=== PATIENT | male | born 1960 | race Caucasian/White ===

== ENCOUNTER 2016-12-02 14:09 | Inpatient (IN) | payer SELFPAY ==
[~2016-12-02] VITALS: Ht 170.2 cm; Wt 70.0 kg
[2016-12-02 14:14] VITALS: BP 150/91; PULSE 110; RESP 24; TEMP 98; O2SAT 95
--- NOTE | 2016-12-02 14:43 | PD ---
HPI Chief Complaint: Skin Problem Time Seen by Provider: 14:43 Travel History International Travel<30 days: No Contact w/Intl Traveler<30days: No Traveled to known affect area: No History of Present Illness HPI 56-year-old male with no significant medical history however long history of IV drug abuse, presents to the emergency department for evaluation of multiple wounds over his lower extremities and upper extremities. Patient states that he just noticed them 4 days ago. He believes he may have used a dirty needle. Denies any fever or chills. Denies any chest or tightness. No difficulty breathing. States that his drug of choice is Dilaudid however he has been using methamphetamine lately. States that he is homeless. He is up-to-date on his tetanus vaccination. Has no other symptoms reported this time. [facility] Past Medical History Medical History: Denies Significant Hx Past Surgical History Surgical History: No Previous Surgery Social History Alcohol Use: Yes (not a lot) Tobacco Use: Yes (1-2 cigarettes a day) Substance Use: Yes (meth , heroin yesterday) Allergies-Medications (Allergen,Severity, Reaction): Coded Allergies: No Known Allergies (Unverified , 12/02/16) Reported Meds & Prescriptions Reported Meds & Active Scripts Active No Active Prescriptions or Reported Medications Review of Systems Except as stated in HPI: all other systems reviewed are Neg Physical Exam Narrative GENERAL: Well-nourished male patient, in no acute distress SKIN: Warm and dry. Multiple wounds, varying in size surrounded by erythema with mild blistering and drainage on the lower and upper extremities. HEAD: Atraumatic. Normocephalic. EYES: Pupils equal and round. No scleral icterus. No injection or drainage. ENT: No nasal bleeding or discharge. Mucous membranes pink and moist. NECK: Trachea midline. No JVD. CARDIOVASCULAR: Tachycardic rate and rhythm. No murmur appreciated. RESPIRATORY: No accessory muscle use. Clear to auscultation. Breath sounds equal bilaterally. GASTROINTESTINAL: Abdomen soft, non-tender, nondistended. Hepatic and splenic margins not palpable. MUSCULOSKELETAL: No obvious deformities. No clubbing. No cyanosis. NEUROLOGICAL: Awake and alert. No obvious cranial nerve deficits. Motor grossly within normal limits. Normal speech. Data Data Last Documented VS Vital Signs Date Time Temp Pulse Resp B/P Pulse Ox O2 Delivery O2 Flow Rate FiO2 12/02/16 17:38 93 14 140/80 93 Room Air 12/02/16 14:14 98.0 Orders Iv Access Insert/Monitor (12/02/16 14:41) Complete Blood Count With Diff (12/02/16 14:41) Basic Metabolic Panel (Bmp) (12/02/16 14:41) Blood Culture (12/02/16 14:41) Sodium Chlor 0.9% 1000 Ml Inj (Ns 1000 M (12/02/16 14:45) Vancomycin Inj (Vancomycin Inj) (12/02/16 14:45) Ketorolac Inj (Toradol Inj) (12/02/16 14:45) Electrocardiogram (12/02/16 ) Lactic Acid Sepsis Protocol (12/02/16 15:06) Westergren Sedimentation Rate (12/02/16 15:06) Chest, Single Ap (12/02/16 ) Sodium Chlor 0.9% 1000 Ml Inj (Ns 1000 M (12/02/16 15:15) Sodium Chlor 0.9% 1000 Ml Inj (Ns 1000 M (12/02/16 15:15) Piperacil-Tazo 4.5 Gm Premix (Zosyn 4.5 (12/02/16 15:15) Admit Order (Ed Use Only) (12/02/16 18:10) Labs Laboratory Tests Test 12/02/16 12/02/16 14:56 15:56 White Blood Count 11.7 TH/MM3 Red Blood Count 4.47 MIL/MM3 Hemoglobin 13.8 GM/DL Hematocrit 40.4 % Mean Corpuscular Volume 90.4 FL Mean Corpuscular Hemoglobin 31.0 PG Mean Corpuscular Hemoglobin 34.2 % Concent Red Cell Distribution Width 12.5 % Platelet Count 248 TH/MM3 Mean Platelet Volume 7.3 FL Neutrophils (%) (Auto) 77.4 % Lymphocytes (%) (Auto) 11.6 % Monocytes (%) (Auto) 8.6 % Eosinophils (%) (Auto) 2.1 % Basophils (%) (Auto) 0.3 % Neutrophils # (Auto) 9.1 TH/MM3 Lymphocytes # (Auto) 1.4 TH/MM3 Monocytes # (Auto) 1.0 TH/MM3 Eosinophils # (Auto) 0.2 TH/MM3 Basophils # (Auto) 0.0 TH/MM3 CBC Comment DIFF FINAL Differential Comment Sodium Level 139 MEQ/L Potassium Level 3.8 MEQ/L Chloride Level 105 MEQ/L Carbon Dioxide Level 27.3 MEQ/L Anion Gap 7 MEQ/L Blood Urea Nitrogen 6 MG/DL Creatinine 0.78 MG/DL Estimat Glomerular Filtration 104 ML/MIN Rate Random Glucose 94 MG/DL Calcium Level 8.8 MG/DL Erythrocyte Sedimentation Rate 30 mm/hr Lactic Acid Level 2.2 mmol/L MDM Medical Decision Making Medical Screen Exam Complete: Yes Emergency Medical Condition: Yes Medical Record Reviewed: Yes Differential Diagnosis cutaneous skin infection vs sepsis vs endocarditis/septic emboli versus electrolyte abnormality Narrative Course 56-year-old male presents to emergency department for evaluation of multiple wounds on his lower and upper extremities. Patient has history of IV drug use. Multiple wounds are noted on the lower and upper extremities. No distinct pattern. CBC is with mild leukocytosis of 11.7 and a left shift with neutrophil count of 9.1. Sedimentation rate is elevated at 30. BMP is without acute concern. Lactic acid is 2.2. Chest x-ray is without acute cardiopulmonary abnormality. I discussed patient with my attending physician Dr. Glass. Patient is given vancomycin and Zosyn after blood cultures are drawn. She recommends admission for further evaluation and treatment. I discussed the patient Dr. Mauricio. [facility]. Sepsis Criteria SIRS Criteria (2 or more): Heart rate over 90, RR > 20 or PaCO2 < 32 Sepsis Criteria (SIRS+source): Infect source susp/known Severe Sepsis (+one): Lactate >2 Diagnosis Primary Impression: Multiple wounds of skin Additional Impressions: IVDU (intravenous drug user) Suspected endocarditis Admitting Information Admitting Physician Requests: Admit Scripts No Active Prescriptions or Reported Meds Condition: Stable Venessa WhelanP Dec 02, 2016 14:43
[2016-12-02] MEDS ORDERED: VANCOMYCIN INJ 1,000 MG in SODIUM CHLOR 0.9% 250 ML INJ 250 ML IV ONE (14:45)
[2016-12-02] MEDS ORDERED: KETOROLAC TROMETHAMINE 30 MG/ML (IVP) VIAL IV PUSH ONE (14:45)
[2016-12-02] MEDS ORDERED: SODIUM CHLOR 0.9% 1000 ML INJ 1,000 ML IV ONE ×3 (14:45→15:15)
[2016-12-02] MEDS ORDERED: PIPERACIL-TAZO 4.5 GM PREMIX 100 ML IV ONE (15:15)
[2016-12-02 15:46] LABS: AUTOMATED NEUTROPHIL # 9.1 TH/MM3 (1.8-7.7); BASOPHIL % 0.3 % (0.0-2.0); EOSINOPHIL # 0.2 TH/MM3 (0-0.4); EOSINOPHIL % 2.1 % (0.0-4.0); HEMATOCRIT 40.4 % (39.0-51.0); HEMO FLAGS DIFF FINAL; LYMPH % 11.6 % (9.0-44.0); LYMPHOCYTE # 1.4 TH/MM3 (1.0-4.8); MEAN CELL VOLUME 90.4 FL (80.0-100.0); MEAN CORPUSCULAR HGB CONC 34.2 % (32.0-36.0); MONO % 8.6 % (0.0-8.0); NEUT % 77.4 % (16.0-70.0); PLATELET COUNT 248 TH/MM3 (150-450); RED BLOOD COUNT 4.47 MIL/MM3 (4.50-5.90); RED CELL DISTRIBUTION WIDTH 12.5 % (11.6-17.2); WHITE BLOOD COUNT 11.7 TH/MM3 (4.0-11.0)
[2016-12-02 15:58] VITALS: BP 155/87; PULSE 88; RESP 16; O2SAT 100
[2016-12-02 16:12] LABS: BICARBONATE 27.3 MEQ/L (21.0-32.0)
[2016-12-02 16:14] LABS: POTASSIUM 3.8 MEQ/L (3.5-5.1)
--- NOTE | 2016-12-02 16:36 | RADRPT ---
EXAM DATE/TIME: 12/02/2016 16:04 [place] COMPARISON: No previous studies available for comparison. INDICATIONS : Fever MEDICAL HISTORY : None. SURGICAL HISTORY : None. ENCOUNTER: Initial ACUITY: 1 day PAIN SCORE: 4/10 LOCATION: Bilateral chest FINDINGS: A single view of the chest demonstrates the lungs to be symmetrically aerated without evidence of mas s, infiltrate or effusion. The cardiomediastinal contours are unremarkable. Osseous structures are intact. CONCLUSION: The lungs are clear. Fabian Bush MD on December 02, 2016 at 16:34 Board Certified Radiologist. This report was verified electronically.
[2016-12-02 17:38] VITALS: BP 140/80; PULSE 93; RESP 14; O2SAT 93
--- NOTE | 2016-12-02 17:52 | EKG ---
Date Performed: 12/02/2016 Time Performed: 15:17:28 PTAGE: 56 years EKG: Sinus rhythm NORMAL ECG NO PREVIOUS TRACING DOCTOR: Kush Weinstein Interpretating Date/Time 12/02/2016 17:51:44
[2016-12-02 17:59] LABS: LACTIC ACID GHOST NOT REPORTABLE
--- NOTE | 2016-12-02 18:24 | HHI.HP ---
[facility] Primary Care Physician No Primary Care Physician Admission Diagnosis Sepsis; multiple wounds; suspected endocarditis Diagnoses: Chief Complaint: Skin lesions Travel History International Travel<30 Days: No Contact w/Intl Traveler <30 Da: No Traveled to Known Affected Are: No History of Present Illness This is a 56-year-old male patient who denies prior medical history. Patient reports that he is an IV drug user and used methamphetamines which he had injected Meth into his right antecubital space on . Patient reports that late or possibly Saturday he developed multiple skin lesions on bilateral upper extremities, bilateral lower extremities, buttocks and top of head. Patient reports that these lesions at first looked like, "blisters filled with pus." Patient then popped the lesions with a razor blade. The lesions are becoming more painful and not improving at home, therefore patient proceeded to the emergency department for further evaluation and treatment. Patient report he has been using intravenous drugs for 30+ years and has never had a problem like this before. Patient reports the needle he used on had been used previously used but he applied bleach prior to using it. Patient also reports he has been in drug rehabilitation with no success. Patient denies chest pain shortness of breath nausea vomiting diarrhea constipation fevers or chills. Review of Systems Other All other systems reviewed and negative except as mentioned in history of present illness. Past Family Social History Past Medical History Denies prior medical history Past Surgical History Denies prior surgeries Reported Medications No Active Prescriptions or Reported Medications Allergies: Coded Allergies: No Known Allergies (Unverified , 12/02/16) Family History Father diagnosed with Rupali Gehrig's disease Social History Occasional EtOH use Tobacco use: 1-2 cigarettes per day Illicit drug use : meth on and heroin yesterday Physical Exam Vital Signs Vital Signs Date Time Temp Pulse Resp B/P Pulse Ox O2 Delivery O2 Flow Rate FiO2 12/02/16 17:38 93 14 140/80 93 Room Air 12/02/16 15:58 88 16 155/87 100 Room Air 12/02/16 14:14 98.0 110 24 150/91 95 Room Air Physical Exam GENERAL: This is a well-nourished, well-developed patient, in no apparent distress. SKIN: Multiple large pustular lesions scattered throughout bilateral upper extremities bilateral lower extremities and buttocks and top of head EYES: Extraocular motions intact. No scleral icterus. No injection or drainage. CARDIOVASCULAR: Regular rate and rhythm without murmurs, gallops, or rubs. RESPIRATORY: Clear to auscultation. Breath sounds equal bilaterally. No wheezes , rales, or rhonchi. GASTROINTESTINAL: Abdomen soft, non-tender, nondistended. No hepato-splenomegaly , or palpable masses. No guarding. MUSCULOSKELETAL: Extremities without clubbing, cyanosis, or edema. No joint tenderness, effusion, or edema noted. No calf tenderness. Negative Homans sign bilaterally. NEUROLOGICAL: Awake and alert. No focal deficits appreciated. Motor and sensory grossly within normal limits. Five out of 5 muscle strength in all muscle groups. Normal speech. Laboratory Laboratory Tests Test 12/02/16 12/02/16 14:56 15:56 White Blood Count 11.7 Red Blood Count 4.47 Hemoglobin 13.8 Hematocrit 40.4 Mean Corpuscular Volume 90.4 Mean Corpuscular Hemoglobin 31.0 Mean Corpuscular Hemoglobin 34.2 Concent Red Cell Distribution Width 12.5 Platelet Count 248 Mean Platelet Volume 7.3 Neutrophils (%) (Auto) 77.4 Lymphocytes (%) (Auto) 11.6 Monocytes (%) (Auto) 8.6 Eosinophils (%) (Auto) 2.1 Basophils (%) (Auto) 0.3 Neutrophils # (Auto) 9.1 Lymphocytes # (Auto) 1.4 Monocytes # (Auto) 1.0 Eosinophils # (Auto) 0.2 Basophils # (Auto) 0.0 CBC Comment DIFF FINAL Differential Comment Sodium Level 139 Potassium Level 3.8 Chloride Level 105 Carbon Dioxide Level 27.3 Anion Gap 7 Blood Urea Nitrogen 6 Creatinine 0.78 Estimat Glomerular Filtration 104 Rate Random Glucose 94 Calcium Level 8.8 Erythrocyte Sedimentation Rate 30 Lactic Acid Level 2.2 Date/Time Procedure Status Source Growth 12/02/16 14:56 Aerobic Blood Culture Received Blood Peripheral Pending 12/02/16 14:56 Anaerobic Blood Culture Received Blood Peripheral Pending Result Diagram: 12/02/16 1456 12/02/16 1456 Assessment and Plan Assessment and Plan This is a 56-year-old male patient who denies prior medical history presented to the emergency department with extensive pustular lesions after he admitted that he probably used a dirty needle to inject Methamphetamines. skin lesions lesion involves his bilateral lower extremities, buttock and on top of head. Drug of choice is heroin. Diffuse cellulitis with multiple pustules IV drug use Need to rule out endocarditis 2-D Echocardiogram ordered and pending continue IV antibiotics: Zosyn and vancomycin Consult infectious disease Blood cultures 2 Wound culture Polysubstance abuse, patient counseled, encouraged to abstinence. SCDs for DVT prophylaxis Discussed with ER provider, RN and patient Written by Lara Esteves, acting as scribe for Dr. Mauricio on 12/02/16 at 18:51. The documentation accurately reflects the work performed [id number] by me on 12/02/16 at 1851. Lara Esteves Dec 02, 2016 18:24 Melany Mauricio MD Dec 02, 2016 19:32
[2016-12-02] MEDS ORDERED: SODIUM CHLORIDE 0.9% FLUSH 5 ML FLUSH IV PRN (19:00)
[2016-12-02] MEDS ORDERED: KETOROLAC TROMETHAMINE 30 MG/ML (IVP) VIAL IVP PRN (19:00)
[2016-12-02] MEDS ORDERED: Vancomycin Consult Pharmacy 1 EA OTHER SCH (19:00)
--- NOTE | 2016-12-02 19:13 | PD ---
Physical Exam Date Seen by Provider: Dec 02, 2016 Time Seen by Provider: 15:00 Narrative I, Dr. Bates, have reviewed the advance practice practitioner's documentation and am in agreement, met with the patient face to face, made the diagnosis, and the medical decision making was done by me. *My assessment and Findings: Patient seen and evaluated with nurse practitioner , we see nurse practitioner note for further information. Patient has history of IV drug use, states that the ulcerated lesions have started on their own over the last few days. He denies injecting into those areas. His white blood cell counts are elevated. Sedimentation rate is elevated. Lactate is elevated. At this point, my concern is underlying infection, possible underlying endocarditis causing seeding. IV antibiotics were given in the ER after cultures are drawn. Case is discussed with Dr. Mauricio for admission. Data Data Last Documented VS Vital Signs Date Time Temp Pulse Resp B/P Pulse Ox O2 Delivery O2 Flow Rate FiO2 12/02/16 17:38 93 14 140/80 93 Room Air 12/02/16 14:14 98.0 Orders Iv Access Insert/Monitor (12/02/16 14:41) Complete Blood Count With Diff (12/02/16 14:41) Basic Metabolic Panel (Bmp) (12/02/16 14:41) Blood Culture (12/02/16 14:41) Sodium Chlor 0.9% 1000 Ml Inj (Ns 1000 M (12/02/16 14:45) Vancomycin Inj (Vancomycin Inj) (12/02/16 14:45) Ketorolac Inj (Toradol Inj) (12/02/16 14:45) Electrocardiogram (12/02/16 ) Lactic Acid Sepsis Protocol (12/02/16 15:06) Westergren Sedimentation Rate (12/02/16 15:06) Chest, Single Ap (12/02/16 ) Sodium Chlor 0.9% 1000 Ml Inj (Ns 1000 M (12/02/16 15:15) Sodium Chlor 0.9% 1000 Ml Inj (Ns 1000 M (12/02/16 15:15) Piperacil-Tazo 4.5 Gm Premix (Zosyn 4.5 (12/02/16 15:15) Admit Order (Ed Use Only) (12/02/16 18:10) Labs Laboratory Tests Test 1/29/17 1/29/17 14:56 15:56 White Blood Count 11.7 TH/MM3 Red Blood Count 4.47 MIL/MM3 Hemoglobin 13.8 GM/DL Hematocrit 40.4 % Mean Corpuscular Volume 90.4 FL Mean Corpuscular Hemoglobin 31.0 PG Mean Corpuscular Hemoglobin 34.2 % Concent Red Cell Distribution Width 12.5 % Platelet Count 248 TH/MM3 Mean Platelet Volume 7.3 FL Neutrophils (%) (Auto) 77.4 % Lymphocytes (%) (Auto) 11.6 % Monocytes (%) (Auto) 8.6 % Eosinophils (%) (Auto) 2.1 % Basophils (%) (Auto) 0.3 % Neutrophils # (Auto) 9.1 TH/MM3 Lymphocytes # (Auto) 1.4 TH/MM3 Monocytes # (Auto) 1.0 TH/MM3 Eosinophils # (Auto) 0.2 TH/MM3 Basophils # (Auto) 0.0 TH/MM3 CBC Comment DIFF FINAL Differential Comment Sodium Level 139 MEQ/L Potassium Level 3.8 MEQ/L Chloride Level 105 MEQ/L Carbon Dioxide Level 27.3 MEQ/L Anion Gap 7 MEQ/L Blood Urea Nitrogen 6 MG/DL Creatinine 0.78 MG/DL Estimat Glomerular Filtration 104 ML/MIN Rate Random Glucose 94 MG/DL Calcium Level 8.8 MG/DL Erythrocyte Sedimentation Rate 30 mm/hr Lactic Acid Level 2.2 mmol/L [facility] Medical Record Reviewed: Yes Supervised Visit with AR: Yes Diagnosis Primary Impression: Multiple wounds of skin Additional Impressions: IVDU (intravenous drug user) Suspected endocarditis Admitting Information Admitting Physician Requests: Admit Scripts No Active Prescriptions or Reported Meds Condition: Stable Erin Bates MD Dec 02, 2016 19:13
[2016-12-02 19:18] VITALS: BP 132/99; PULSE 77; RESP 18; O2SAT 98
[2016-12-02 20:00] VITALS: BP 151/97; PULSE 78; RESP 16; TEMP 97.7; O2SAT 100
[2016-12-02] MEDS: PIPERACIL-TAZO 3.375 GM PREMIX 50 ML IV SCH (22:24)
[2016-12-02] MEDS: SODIUM CHLORIDE 0.9% FLUSH 5 ML FLUSH IV SCH (22:24)
[2016-12-03] VITALS: BP 135/76; PULSE 85; RESP 16; TEMP 97.9; O2SAT 98
[2016-12-03] MEDS: VANCOMYCIN INJ 1,250 MG in SODIUM CHLOR 0.9% 250 ML INJ 250 ML IV SCH ×2 (00:15→10:44)
[2016-12-03] MEDS: PIPERACIL-TAZO 3.375 GM PREMIX 50 ML IV SCH ×3 (03:22→16:54)
[2016-12-03 05:20] LABS: AUTOMATED NEUTROPHIL # 5.2 TH/MM3 (1.8-7.7); BASOPHIL % 0.3 % (0.0-2.0); EOSINOPHIL # 0.2 TH/MM3 (0-0.4); EOSINOPHIL % 3.2 % (0.0-4.0); HEMO FLAGS DIFF FINAL; LYMPH % 17.5 % (9.0-44.0); LYMPHOCYTE # 1.3 TH/MM3 (1.0-4.8); MEAN CELL VOLUME 91.1 FL (80.0-100.0); MEAN CORPUSCULAR HGB CONC 34.1 % (32.0-36.0); PLATELET COUNT 265 TH/MM3 (150-450); RED BLOOD COUNT 3.95 MIL/MM3 (4.50-5.90); RED CELL DISTRIBUTION WIDTH 12.5 % (11.6-17.2); WHITE BLOOD COUNT 7.7 TH/MM3 (4.0-11.0)
[2016-12-03 05:50] LABS: BICARBONATE 26.1 MEQ/L (21.0-32.0); POTASSIUM 4.1 MEQ/L (3.5-5.1)
[2016-12-03 08:00] VITALS: BP 150/89; PULSE 94; RESP 18; TEMP 98.7; O2SAT 99
[2016-12-03] MEDS ORDERED: VANCOMYCIN INJ 1,000 MG in SODIUM CHLOR 0.9% 250 ML INJ 250 ML IV SCH (09:00)
[2016-12-03] MEDS: ACETAMINOPHEN/HYDROcodone 325 MG/5 MG TAB PO PRN ×3 (09:12→21:50)
[2016-12-03] MEDS: SODIUM CHLORIDE 0.9% FLUSH 5 ML FLUSH IV SCH ×2 (09:13→21:00)
[2016-12-03 12:00] VITALS: BP 146/85; PULSE 89; RESP 18; TEMP 98.5; O2SAT 99
--- NOTE | 2016-12-03 14:36 | EC ---
Study Study Date:12/03/2016 STUDY CONCLUSIONS SUMMARY - Left ventricle: The cavity size was normal. Wall thickness was normal. Systolic function was normal. The estimated ejection fraction was in the range of 55% to 60%. Wall motion was normal; there were no regional wall motion abnormalities. - Tricuspid valve: Cannot exclude vegetation. If LV function is below 40, please consider prescribing an ACEI or ARB or document rationale for non-use. PROCEDURE DATA STUDY STATUS: Elective. Procedure: Transthoracic echocardiography. Image quality was good. Scanning was performed from the parasternal, apical, and subcostal acoustic windows. Study completion: The patient tolerated the procedure well. Transthoracic echocardiography. M-mode, complete 2D, complete spectral Doppler, and color Doppler. Patient status: Inpatient. CARDIAC ANATOMY LEFT VENTRICLE: The cavity size was normal. Wall thickness was normal. Systolic function was normal. The estimated ejection fraction was in the range of 55% to 60%. Wall motion was normal; there were no regional wall motion abnormalities. AORTIC VALVE: Trileaflet; normal thickness leaflets. Doppler: Transvalvular velocity was within the normal range. There was no stenosis. No regurgitation. Mean gradient: 6mm Hg (S). Peak gradient: 13mm Hg (S). AORTA: Aortic root: The aortic root was normal in size. MITRAL VALVE: Structurally normal valve. Doppler: Transvalvular velocity was within the normal range. There was no evidence for stenosis. Trace regurgitation. Peak gradient: 3mm Hg (D). LEFT ATRIUM: The atrium was normal in size. RIGHT VENTRICLE: The cavity size was normal. Wall thickness was normal. PULMONIC VALVE: Doppler: Transvalvular velocity was within the normal range. There was no evidence for stenosis. No regurgitation. TRICUSPID VALVE: Mildly thickened leaflets. Cannot exclude vegetation. Doppler: Transvalvular velocity was within the normal range. Trace regurgitation. PULMONARY ARTERY: The main pulmonary artery was normal-sized. Systolic pressure was within the normal range. RIGHT ATRIUM: The atrium was normal in size. PERICARDIUM: There was no pericardial effusion. SYSTEMIC VEINS: Inferior vena cava: The vessel was normal in size. BASIC MEASUREMENTS ADULT NORMAL Left ventricle LV internal dimension, ED, chordal level, 47.6 mm 43-52 PLAX LV posterior wall thickness, ED 7.24 mm IVS/LVPW ratio, ED 1.27 <1.3 Ventricular septum Septal thickness, ED 9.17 mm Aortic valve Leaflet separation 21 mm 15-26 Left atrium Anterior-posterior dimension 28 mm Right ventricle RV internal dimension, ED, PLAX 27 mm 19-38 BASIC MEASUREMENTS ADULT NORMAL Aortic valve Leaflet separation 21 mm 15-26 Aorta Root diameter, ED 27 mm 20-37 DOPPLER MEASUREMENTS ADULT NORMAL Main pulmonary artery Pressure, S 29 mm Hg =30 Aortic valve Peak velocity, S 181 cm/s Mean velocity, S 116 cm/s VTI, S 41 cm Mean gradient, S 6 mm Hg Peak gradient, S 13 mm Hg Mitral valve Peak E-wave velocity 81.9 cm/s Peak A-wave velocity 56.3 cm/s Peak gradient, D 3 mm Hg Peak E/A ratio 1.5 Tricuspid valve Regurgitant peak velocity 220 cm/s Peak RV-RA gradient, S 19 mm Hg Maximal regurgitant velocity 220 cm/s Systemic veins Estimated CVP 10 mm Hg Right ventricle RV pressure, S 29 mm Hg <30 LEGEND: Mean values are shown as u=mean value. Asterisk (*) chau values outside specified normal range. Prepared and signed by Ezio Almaraz [id number]
[2016-12-03 16:00] VITALS: BP 146/78; PULSE 89; RESP 17; TEMP 98.8; O2SAT 100
--- NOTE | 2016-12-03 16:46 | HHI.PR ---
Subjective Remarks Patient denies any chest pain or shortness of breath Stable vital signs Denies fevers or chills Objective Vitals Vital Signs Date Time Temp Pulse Resp B/P Pulse Ox O2 Delivery O2 Flow Rate FiO2 12/03/16 12:00 98.5 89 18 146/85 99 12/03/16 08:00 98.7 94 18 150/89 99 12/03/16 00:00 97.9 85 16 135/76 98 12/02/16 20:00 97.7 78 16 151/97 100 12/02/16 19:18 77 18 132/99 98 Room Air 12/02/16 17:38 93 14 140/80 93 Room Air I/O 12/02/16 12/02/16 12/02/16 12/03/16 12/03/16 12/03/16 07:00 15:00 23:00 07:00 15:00 23:00 Intake Total 240 ml 360 ml 240 ml Output Total 700 ml 700 ml Balance 240 ml -340 ml -460 ml Intake Oral 240 ml 360 ml 240 ml Output Urine Total 700 ml 700 ml # Bowel Movements 0 0 Result Diagram: 12/03/16 0430 12/03/16 0430 Imaging Last Impressions Chest X-Ray 12/02/16 0000 Signed Impressions: Service Date/Time: Friday, December 02, 2016 16:04 - CONCLUSION: The lungs are clear. Fabian Bush MD Reviewed by me Objective Remarks GENERAL: This is a well-nourished, well-developed patient, in no apparent distress. SKIN: Multiple large pustular lesions scattered throughout bilateral upper extremities bilateral lower extremities and buttocks and top of head EYES: Extraocular motions intact. No scleral icterus. No injection or drainage. CARDIOVASCULAR: Regular rate and rhythm without murmurs, gallops, or rubs. RESPIRATORY: Clear to auscultation. Breath sounds equal bilaterally. No wheezes , rales, or rhonchi. GASTROINTESTINAL: Abdomen soft, non-tender, nondistended. No hepato-splenomegaly , or palpable masses. No guarding. MUSCULOSKELETAL: Extremities without clubbing, cyanosis, or edema. No joint tenderness, effusion, or edema noted. No calf tenderness. Negative Homans sign bilaterally. NEUROLOGICAL: Awake and alert. No focal deficits appreciated. Motor and sensory grossly within normal limits. Five out of 5 muscle strength in all muscle groups. Normal speech. Medications and IVs Current Medications Medications (Trade) Dose Ordered Sig/Ivette Route Start Time Stop Time Status Last Admin (NS Flush) 2 ml BID IV 12/02/16 21:00 12/03/16 21:00 (NS Flush) 2 ml UNSCH PRN IV 12/02/16 19:00 ([place] 5-325 Mg) 1 tab Q4H PRN PO 12/02/16 19:00 12/03/16 21:50 Ketorolac Tromethamine 30 mg 30 mg Q6H PRN IVP 12/02/16 19:00 Pharmacy Profile Note 0 ml @ 0 mls/hr UNSCH OTHER 12/02/16 19:00 (Vancomycin Inj/ NS 250 ml Inj) 262.5 ml @ 250 mls/hr Q12H IV 12/03/16 00:00 12/03/16 10:44 Miscellaneous Information SPECIFIC LAB TO BE LAUREN... ONCE ONCE XX 12/04/16 11:45 12/04/16 11:46 A/P Assessment and Plan his is a 56-year-old male patient who denies prior medical history presented to the emergency department with extensive pustular lesions after he admitted that he probably used a dirty needle to inject Methamphetamines. skin lesions lesion involves his bilateral lower extremities, buttock and on top of head. Drug of choice is heroin. Diffuse cellulitis with multiple pustules IV drug use Need to rule out endocarditis continue IV antibiotics: Zosyn and vancomycin Consult infectious disease Blood cultures 1 Wound culture 2D echocardiogram vehicle carotid shows normal EF of 55-60% with normal wall motion. Cannot rule out tricuspid valve vegetation. Polysubstance abuse, patient counseled, encouraged to abstinence. SCDs for DVT prophylaxis Mitchell Joseph MD Dec 03, 2016 16:45
[2016-12-03 20:00] VITALS: BP 142/80; PULSE 90; RESP 18; TEMP 98.1; O2SAT 100
[2016-12-04] VITALS: BP 138/76; PULSE 86; RESP 20; TEMP 97.8; O2SAT 97
[2016-12-04] MEDS: VANCOMYCIN INJ 1,250 MG in SODIUM CHLOR 0.9% 250 ML INJ 250 ML IV SCH ×2 (01:22→13:26)
[2016-12-04 05:51] LABS: AUTOMATED NEUTROPHIL # 3.9 TH/MM3 (1.8-7.7); BASOPHIL # 0.1 TH/MM3 (0-0.2); BASOPHIL % 1.1 % (0.0-2.0); EOSINOPHIL # 0.3 TH/MM3 (0-0.4); EOSINOPHIL % 4.8 % (0.0-4.0); HEMATOCRIT 39.3 % (39.0-51.0); HEMO FLAGS DIFF FINAL; LYMPH % 26.6 % (9.0-44.0); LYMPHOCYTE # 1.9 TH/MM3 (1.0-4.8); MEAN CELL VOLUME 91.3 FL (80.0-100.0); NEUT % 55.5 % (16.0-70.0); PLATELET COUNT 301 TH/MM3 (150-450); RED BLOOD COUNT 4.31 MIL/MM3 (4.50-5.90); RED CELL DISTRIBUTION WIDTH 12.8 % (11.6-17.2); WHITE BLOOD COUNT 7.1 TH/MM3 (4.0-11.0)
--- NOTE | 2016-12-04 07:28 | MB ---
cc: MILAGROS MAURICIO,JOE Carbone MD DATE OF CONSULTATION: 12/03/[address] Mauricio REASON FOR CONSULTATION Cellulitis, extensive pustules, IVDU. HISTORY OF PRESENT ILLNESS This is a 56-year-old white male who presented to the emergency department with multiple skin lesions. The patient reports that he was using IV drugs and he thinks that he may have used a dirty needle. He notes that approximately four days ago after using drugs he developed multiple pustules of the skin with redness. He started developing night sweats as well. He presented to the emergency department and was admitted for further evaluation. Blood cultures were taken and there was no growth in one day. Culture of the skin has MRSA and group-A beta strep. The patient has multiple pustular skin lesions at both extremities below the knee and also the upper extremities all along his forearm to the wrist. These are scattered, pale discolored pustular lesions with mild erythema at the borders. He denies fevers or chills. He is afebrile. His white count is 7.7. The white count yesterday was 11.7. Chest x-ray shows no acute disease. Echocardiogram shows mildly thickened leaflets at the tricuspid valve. The patient is currently in no acute distress. The patient denies prior hospitalizations. He is homeless. He has been using drugs for many years. PAST MEDICAL HISTORY The patient denies prior surgical procedures. ALLERGIES No known drug allergies. MEDICATIONS 1. Vancomycin. 2. Piperacillin/tazobactam. 3. [place] 5 p.r.n. SOCIAL HISTORY The patient smokes 1-2 cigarettes a day. Positive alcohol use. Positive IV drug use in the form of methamphetamines and heroin. FAMILY HISTORY Noncontributory. REVIEW OF SYSTEMS Pertinent as mentioned in the history of present illness. Otherwise negative. PHYSICAL EXAMINATION GENERAL: This is a slender male who appears somewhat disheveled. He is in no acute distress. VITAL SIGNS: Temperature 98.8, BP 146/78, respirations 17, heart rate 89. HEENT: The head is atraumatic. Extraocular movements grossly intact. Pupils are reactive to light. No icterus. Oropharynx no visible lesions. Moist mucosa. NECK: Supple without adenopathy. LYMPH NODES: Positive axillary adenopathy and also inguinal adenopathy. LUNGS: Clear to auscultation. HEART: Regular rate and rhythm without audible murmurs, rubs or gallops. ABDOMEN: Bowel sounds present, soft, nontender. RECTAL: Not performed. EXTREMITIES: No clubbing, cyanosis or edema. Multiple skin lesions scattered over the anterior tibias and also the feet, forearms and wrists. No palpable cords. No splinter hemorrhages. NEUROLOGIC: The patient is alert and oriented. Grossly nonfocal. SKIN: No diffuse rash. Multiple skin lesions. The skin is warm and moist. PSYCHIATRIC: The patient is calm and cooperative. LABORATORY DATA WBC 7.7, platelet count 265, 68% neutrophils, 17% lymphocytes, hemoglobin 12.2. Creatinine 0.73, BUN 7, sodium 143. IMPRESSION 1. Multiple skin abscesses due to MRSA and group-A beta strep. 2. Skin lesions secondary to IV drug abuse with injectable drugs. RECOMMENDATIONS 1. Continue intravenous vancomycin. 2. Discontinue piperacillin/tazobactam. 3. Monitor the blood cultures. If the blood cultures are positive we will need to probably further investigate for tricuspid valve vegetation in light of the abnormality seen on the 2-D echo. If the blood cultures are negative he can be treated for the skin abscesses due to MRSA, but will need to find out the sensitivities to determine if oral antibiotics can be used for outpatient treatment. Thank you this consultation. The patient's progress will be monitored and further recommendations will be given on follow-up if necessary. Joe Sanchez MD FD/LUISA /5:29 PM /7:03 AM FRANNY
[2016-12-04 08:00] VITALS: BP 140/86; PULSE 79; RESP 20; TEMP 96.6; O2SAT 97
--- NOTE | 2016-12-04 08:57 | HHI.PR ---
Subjective Remarks Patient denies fevers or chills Denies diarrhea Denies rash States basilar lesion seems to be draining out. Denies cough, chest pain or shortness of breath Objective Vitals Vital Signs Date Time Temp Pulse Resp B/P Pulse Ox O2 Delivery O2 Flow Rate FiO2 12/04/16 00:04 16 12/04/16 00:00 97.8 86 20 138/76 97 12/03/16 20:00 98.1 90 18 142/80 100 12/03/16 16:00 98.8 89 17 146/78 100 12/03/16 12:00 98.5 89 18 146/85 99 I/O 12/03/16 12/03/16 12/03/16 12/04/16 12/04/16 12/04/16 07:00 15:00 23:00 07:00 15:00 23:00 Intake Total 360 ml 240 ml 480 ml 980 ml Output Total 700 ml 700 ml 850 ml 600 ml Balance -340 ml -460 ml -370 ml 380 ml Intake Oral 360 ml 240 ml 480 ml 720 ml IV Total 0 ml 260 ml Output Urine Total 700 ml 700 ml 850 ml 600 ml # Bowel Movements 0 0 0 Result Diagram: 12/04/16 0439 12/04/16 0439 Imaging Last Impressions Chest X-Ray 12/02/16 0000 Signed Impressions: Service Date/Time: Friday, December 02, 2016 16:04 - CONCLUSION: The lungs are clear. Fabian Bush MD Objective Remarks GENERAL: This is a well-nourished, well-developed patient, in no apparent distress. SKIN: Multiple large pustular lesions scattered throughout bilateral upper extremities bilateral lower extremities and buttocks and top of head EYES: Extraocular motions intact. No scleral icterus. No injection or drainage. CARDIOVASCULAR: Regular rate and rhythm without murmurs, gallops, or rubs. RESPIRATORY: Clear to auscultation. Breath sounds equal bilaterally. No wheezes , rales, or rhonchi. GASTROINTESTINAL: Abdomen soft, non-tender, nondistended. No hepato-splenomegaly , or palpable masses. No guarding. MUSCULOSKELETAL: Extremities without clubbing, cyanosis, or edema. No joint tenderness, effusion, or edema noted. No calf tenderness. Negative Homans sign bilaterally. NEUROLOGICAL: Awake and alert. No focal deficits appreciated. Motor and sensory grossly within normal limits. Five out of 5 muscle strength in all muscle groups. Normal speech. Medications and IVs Current Medications Medications (Trade) Dose Ordered Sig/Ivette Route Start Time Stop Time Status Last Admin (NS Flush) 2 ml BID IV 12/02/16 21:00 12/03/16 21:00 (NS Flush) 2 ml UNSCH PRN IV 12/02/16 19:00 ([place] 5-325 Mg) 1 tab Q4H PRN PO 12/02/16 19:00 12/03/16 21:50 Ketorolac Tromethamine 30 mg 30 mg Q6H PRN IVP 12/02/16 19:00 Pharmacy Profile Note 0 ml @ 0 mls/hr UNSCH OTHER 12/02/16 19:00 (Vancomycin Inj/ NS 250 ml Inj) 262.5 ml @ 250 mls/hr Q12H IV 12/03/16 00:00 12/04/16 01:22 Miscellaneous Information SPECIFIC LAB TO BE ... ONCE ONCE XX 12/04/16 11:45 12/04/16 11:46 Urinary Catheter: No Vascular Central Line Catheter: No A/P Problem List: (1) Multiple wounds of skin ICD Code: R23.8 Status: Acute Plan: Patient presents with multiple abscesses. I be consultedrecommendations I proceeded Patient initially treated with IV broad-spectrum antibiotics, IV vancomycin and IV Zosyn IV Zosyn discontinued by infectious disease since 1 cultures grew MRSA and group A beta strep. Continue IV vancomycin, pharmacy to help dose vancomycin. (2) Abscess of skin ICD Code: L02.91 Status: Acute Plan: Multiple abscesses of the skin in the upper extremities, trunk and lower extremities Obtaining IV antibiotics as above I will consult wound care nurse. (3) Leukocytosis ICD Code: D72.829 Status: Acute Plan: Clinical cytosis likely secondary to cellulitis and multiple skin abscesses. Leukocytosis has resolved. Continue to monitor CBC with differential. (4) Suspected endocarditis ICD Code: Z03.89 Status: Acute Plan: Echocardiogram showed an EF of 55-60% with normal wall motion. He could not rule out a tricuspid palpitation. The plan is to follow blood cultures and if these are positive then pursue further diagnostic testing for endocarditis. The blood cultures are negative then we'll treat for skin abscesses and the patient will likely be able to discharged on oral regimen. (5) HTN (hypertension) ICD Code: I10 Status: Acute Plan: Patient with systolic blood pressure persistently in the 140s. I will start the patient on amlodipine 5 mg by mouth daily. I would avoid stay way from beta blockers since the patient is an IV drug abuser (6) IVDU (intravenous drug user) ICD Code: F19.90 Status: Acute Plan: Encouraged abstinence and explained about the health risks that are taken one drops are consumed. (7) Polysubstance dependence ICD Code: F19.20 Status: Acute (8) Polysubstance abuse ICD Code: F19.10 Status: Acute Plan: As above. Assessment and Plan DVT prophylaxis: SCDs, will start the patient on Lovenox subcutaneously. GI prophylaxis: Add proton pump inhibitor. Discharge Planning Continue to monitor and the medical floor. Problem Qualifiers (1) Abscess of skin: Qualified Code: L02.91 - Cutaneous abscess, unspecified site (2) Leukocytosis: Qualified Code: D72.829 - Leukocytosis, unspecified type (3) HTN (hypertension): Qualified Code: I10 - Essential hypertension Mitchell Joseph MD Dec 04, 2016 08:57
[2016-12-04] MEDS ORDERED: PILL SPLITTER OTHER PRN (09:45)
[2016-12-04] MEDS: SODIUM CHLORIDE 0.9% FLUSH 5 ML FLUSH IV SCH ×2 (10:01→21:00)
[2016-12-04] MEDS: amLODIPine BESYLATE 5 MG TAB PO SCH (10:01)
[2016-12-04] MEDS: ACETAMINOPHEN/HYDROcodone 325 MG/5 MG TAB PO PRN ×3 (10:08→21:21)
[2016-12-04] MEDS ORDERED: PHARMACY ORDERED LAB XX ONE (11:45)
[2016-12-04 12:00] VITALS: BP 128/86; PULSE 78; RESP 20; TEMP 97.6; O2SAT 98
[2016-12-04 13:17] LABS: ALKALINE PHOSPHATASE 84 U/L (45-117); ALT (GPT) 56 U/L (12-78); ANION GAP 10 MEQ/L (5-15); AST (GOT) 42 U/L (15-37); BICARBONATE 25.2 MEQ/L (21.0-32.0); BLOOD UREA NITROGEN 8 MG/DL (7-18); CHLORIDE 105 MEQ/L (98-107); GLOMERULAR FILTRATION RATE 126 ML/MIN (>89); MAGNESIUM 2.1 MG/DL (1.5-2.5); SODIUM (NA) 140 MEQ/L (136-145); TOTAL BILIRUBIN ADULT 0.2 MG/DL (0.2-1.0); VANCOMYCIN TROUGH 7.6 MCG/ML (5.0-10.0)
[2016-12-04 16:00] VITALS: BP 137/93; PULSE 84; RESP 20; TEMP 96.9; O2SAT 97
[2016-12-04] MEDS: VANCOMYCIN INJ 1,750 MG in SODIUM CHLORID 0.9% 500 ML INJ 500 ML IV SCH (17:55)
[2016-12-04 20:00] VITALS: BP 140/88; PULSE 88; RESP 20; TEMP 97.2; O2SAT 97
[2016-12-05] VITALS: BP 130/72; PULSE 80; RESP 18; TEMP 98.4; O2SAT 96
[2016-12-05] MEDS: VANCOMYCIN INJ 1,750 MG in SODIUM CHLORID 0.9% 500 ML INJ 500 ML IV SCH ×2 (05:52→17:39)
[2016-12-05] MEDS: ACETAMINOPHEN/HYDROcodone 325 MG/5 MG TAB PO PRN ×4 (06:02→21:47)
[2016-12-05 08:00] VITALS: BP 134/95; PULSE 69; RESP 17; TEMP 97.7; O2SAT 96
[2016-12-05] MEDS: amLODIPine BESYLATE 5 MG TAB PO SCH (08:18)
[2016-12-05] MEDS: SODIUM CHLORIDE 0.9% FLUSH 5 ML FLUSH IV SCH ×2 (08:18→20:45)
--- NOTE | 2016-12-05 10:20 | HHI.PR ---
Subjective Remarks Patient denying fever or chills nausea or vomiting Skin lesion are dry but there is marked on the bed from draining before Objective Vitals Vital Signs Date Time Temp Pulse Resp B/P Pulse Ox O2 Delivery O2 Flow Rate FiO2 12/05/16 08:00 97.7 69 17 134/95 96 12/05/16 00:00 98.4 80 18 130/72 96 12/04/16 22:56 16 12/04/16 20:00 97.2 88 20 140/88 97 12/04/16 16:00 96.9 84 20 137/93 97 12/04/16 12:00 97.6 78 20 128/86 98 I/O 12/04/16 12/04/16 12/04/16 12/05/16 12/05/16 12/05/16 07:00 15:00 23:00 07:00 15:00 23:00 Intake Total 980 ml 600 ml 1511 ml 360 ml 859 ml Output Total 600 ml 1400 ml 750 ml Balance 380 ml 600 ml 111 ml -390 ml 859 ml Intake Oral 720 ml 600 ml 760 ml 360 ml IV Total 260 ml 751 ml 0 ml 859 ml Output Urine Total 600 ml 1400 ml 750 ml # Voids 5 # Bowel Movements 1 0 0 Result Diagram: 12/04/16 0439 12/04/16 1220 Objective Remarks GENERAL: This is a well-nourished, well-developed patient, in no apparent distress. SKIN: Multiple dried pustules on the upper and lower extremities HEAD: Atraumatic. Normocephalic. EYES: Pupils equal round and reactive. Extraocular motions intact. No scleral icterus. ENT: Nose without bleeding, or drainage, Airway patent. NECK: Trachea midline. Supple CARDIOVASCULAR: Regular rate and rhythm without murmurs, gallops, or rubs. RESPIRATORY: Fair air entry bilaterally. No wheezes, rales, or rhonchi. GASTROINTESTINAL: Abdomen soft, non-tender, nondistended. Positive bowel sounds MUSCULOSKELETAL: Extremities without clubbing, cyanosis, or edema. Pedal pulses appreciated NEUROLOGICAL: Awake and alert. Moves all extremity. Normal speech.no focal neurological deficit A/P Problem List: (1) Multiple wounds of skin ICD Code: R23.8 Status: Acute (2) Abscess of skin ICD Code: L02.91 Status: Acute (3) Suspected endocarditis ICD Code: Z03.89 Status: Acute (4) HTN (hypertension) ICD Code: I10 Status: Acute (5) IVDU (intravenous drug user) ICD Code: F19.90 Status: Acute Assessment and Plan Multiple skin wounds infection with MRSA and group A streptococcus Multiple skin abscesses and pustules Suspected endocarditis follow blood culture Hypertension IVDU DVT prophylax Plan: Patient started on Vanco and Zosyn, consulted ID, stopped Zosyn 2-D echo showed 55% EF, cannot rule out tricuspid vegetation, Need to follow up blood culture, if positive will need further investigation to rule out endocarditis per ID recommendation. Continue amlodipine for hypertension Extensive Counseling for IVDU Start Lovenox for DVT prophylax Problem Qualifiers (1) Abscess of skin: Qualified Code: L02.91 - Cutaneous abscess, unspecified site (2) HTN (hypertension): Qualified Code: I10 - Essential hypertension Alirio Sarkar MD Dec 05, 2016 10:20
[2016-12-05] MEDS: ENOXAPARIN SODIUM 40 MG/0.4 ML SYRINGE SQ SCH (11:00)
[2016-12-05 12:00] VITALS: BP 131/75; PULSE 85; RESP 17; TEMP 97.6; O2SAT 98
[2016-12-05] MEDS ORDERED: CLIN1CAP6 PO (15:16)
--- NOTE | 2016-12-05 15:25 | HHI.IDPN ---
Note Infectious Disease Note Patient feels okay. Denies chills or fever. No new lesions on shanks. Afebrile. Blood cultures have no growth. PAST MEDICAL HISTORY The patient denies prior surgical procedures. ALLERGIES No known drug allergies. MEDICATIONS 1. Vancomycin. OBJECTIVE: Vital Signs Date Time Temp Pulse Resp B/P Pulse Ox O2 Delivery O2 Flow Rate FiO2 12/05/16 12:00 97.6 85 17 131/75 98 12/05/16 08:00 97.7 69 17 134/95 96 12/05/16 00:00 98.4 80 18 130/72 96 12/04/16 22:56 16 12/04/16 20:00 97.2 88 20 140/88 97 12/04/16 16:00 96.9 84 20 137/93 97 Laboratory Tests Test 12/04/16 04:39 White Blood Count 7.1 TH/MM3 Red Blood Count 4.31 MIL/MM3 Hemoglobin 13.4 GM/DL Hematocrit 39.3 % Mean Corpuscular Volume 91.3 FL Mean Corpuscular Hemoglobin 31.0 PG Mean Corpuscular Hemoglobin 34.0 % Concent Red Cell Distribution Width 12.8 % Platelet Count 301 TH/MM3 Mean Platelet Volume 6.7 FL Neutrophils (%) (Auto) 55.5 % Lymphocytes (%) (Auto) 26.6 % Monocytes (%) (Auto) 12.0 % Eosinophils (%) (Auto) 4.8 % Basophils (%) (Auto) 1.1 % Neutrophils # (Auto) 3.9 TH/MM3 Lymphocytes # (Auto) 1.9 TH/MM3 Monocytes # (Auto) 0.9 TH/MM3 Eosinophils # (Auto) 0.3 TH/MM3 Basophils # (Auto) 0.1 TH/MM3 CBC Comment DIFF FINAL Differential Comment Laboratory Tests Test 12/04/16 12/04/16 04:39 12:20 Creatinine 0.71 MG/DL 0.66 MG/DL Estimat Glomerular Filtration 116 ML/MIN 126 ML/MIN Rate Sodium Level 140 MEQ/L Potassium Level 4.0 MEQ/L Chloride Level 105 MEQ/L Carbon Dioxide Level 25.2 MEQ/L Anion Gap 10 MEQ/L Blood Urea Nitrogen 8 MG/DL Random Glucose 100 MG/DL Calcium Level 8.7 MG/DL Phosphorus Level 3.3 MG/DL Magnesium Level 2.1 MG/DL Total Bilirubin 0.2 MG/DL Aspartate Amino Transf 42 U/L (AST/SGOT) Alanine Aminotransferase 56 U/L (ALT/SGPT) Alkaline Phosphatase 84 U/L Total Protein 6.8 GM/DL Albumin 2.7 GM/DL Microbiology Date/Time Procedure Status Source Growth 12/02/16 19:30 Gram Stain - Final Complete Wound Arm 12/02/16 19:30 Wound Culture - Final Complete S. Aureus Mrsa Group A Beta Strep PHYSICAL EXAMINATION GENERAL: No acute distress. HEENT: No icterus. Oropharynx no visible lesions. Moist mucosa. NECK: Supple without adenopathy. LYMPH NODES: Positive axillary adenopathy and also inguinal adenopathy. LUNGS: Clear to auscultation. HEART: Regular rate and rhythm without audible murmurs, rubs or gallops. ABDOMEN: Bowel sounds present, soft, nontender. EXTREMITIES: No clubbing, cyanosis or edema. Multiple skin lesions scattered over the anterior tibias and also the feet, forearms and wrists. Lesions are drying. NEUROLOGIC: The patient is alert and oriented. Grossly nonfocal. SKIN: No diffuse rash. Multiple skin lesions. The skin is warm and moist. PSYCHIATRIC: The patient is calm and cooperative. IMPRESSION 1. Multiple skin abscesses due to MRSA and group-A beta strep. 2. Skin infected lesions secondary to IV drug abuse with injectable drugs. RECOMMENDATIONS Continue intravenous vancomycin today and may D/C tomorrow on PO Clindamycin x 14 days. Porter Sanchez MD Dec 05, 2016 15:25
[2016-12-05 20:00] VITALS: BP 128/87; PULSE 86; RESP 19; TEMP 98.6; O2SAT 97
[2016-12-05 23:54] VITALS: BP 121/79; PULSE 84; RESP 18; TEMP 98.6; O2SAT 96
[2016-12-06] MEDS ORDERED: PHARMACY ORDERED LAB XX ONE (05:45)
[2016-12-06] MEDS: ACETAMINOPHEN/HYDROcodone 325 MG/5 MG TAB PO PRN ×2 (05:54→10:06)
[2016-12-06] MEDS: VANCOMYCIN INJ 1,750 MG in SODIUM CHLORID 0.9% 500 ML INJ 500 ML IV SCH (06:57)
[2016-12-06 08:00] VITALS: BP 117/74; PULSE 82; RESP 18; TEMP 97.5; O2SAT 95
[2016-12-06] MEDS: SODIUM CHLORIDE 0.9% FLUSH 5 ML FLUSH IV SCH (09:36)
[2016-12-06] MEDS: amLODIPine BESYLATE 5 MG TAB PO SCH (09:38)
[2016-12-06] MEDS ORDERED: AMLO5 PO (10:22)
[2016-12-06] MEDS ORDERED: HYDR-3516 PO (10:22)
--- NOTE | 2016-12-06 10:25 | HHI.PR ---
Subjective Remarks Doing well no fever or chills patient cleared by ID to be discharged home today on 14 days of clindamycin Objective Vitals Vital Signs Date Time Temp Pulse Resp B/P Pulse Ox O2 Delivery O2 Flow Rate FiO2 12/05/16 23:54 98.6 84 18 121/79 96 12/05/16 20:00 98.6 86 19 128/87 97 12/05/16 12:00 97.6 85 17 131/75 98 I/O 12/05/16 12/05/16 12/05/16 12/06/16 12/06/16 12/06/16 07:00 15:00 23:00 07:00 15:00 23:00 Intake Total 360 ml 1459 ml 740 ml 240 ml Output Total 750 ml 600 ml 600 ml 400 ml Balance -390 ml 859 ml 140 ml -160 ml Intake Oral 360 ml 600 ml 240 ml 240 ml IV Total 0 ml 859 ml 500 ml 0 ml Output Urine Total 750 ml 600 ml 600 ml 400 ml # Bowel Movements 0 0 0 0 Result Diagram: 12/04/16 0439 12/06/16 0342 Objective Remarks GENERAL: This is a well-nourished, well-developed patient, in no apparent distress. SKIN: Multiple dried pustules on the upper and lower extremities HEAD: Atraumatic. Normocephalic. EYES: Pupils equal round and reactive. Extraocular motions intact. No scleral icterus. ENT: Nose without bleeding, or drainage, Airway patent. NECK: Trachea midline. Supple CARDIOVASCULAR: Regular rate and rhythm without murmurs, gallops, or rubs. RESPIRATORY: Fair air entry bilaterally. No wheezes, rales, or rhonchi. GASTROINTESTINAL: Abdomen soft, non-tender, nondistended. Positive bowel sounds MUSCULOSKELETAL: Extremities without clubbing, cyanosis, or edema. Pedal pulses appreciated NEUROLOGICAL: Awake and alert. Moves all extremity. Normal speech.no focal neurological deficit A/P Problem List: (1) Multiple wounds of skin ICD Code: R23.8 Status: Acute (2) Abscess of skin ICD Code: L02.91 Status: Acute (3) Suspected endocarditis ICD Code: Z03.89 Status: Acute (4) HTN (hypertension) ICD Code: I10 Status: Acute (5) IVDU (intravenous drug user) ICD Code: F19.90 Status: Acute Assessment and Plan Multiple skin wounds infection with MRSA and group A streptococcus Multiple skin abscesses and pustules Suspected endocarditis follow blood culture Hypertension IVDU DVT prophylax Plan: Patient started on Vanco and Zosyn, consulted ID, stopped Zosyn 2-D echo showed 55% EF, cannot rule out tricuspid vegetation, Need to follow up blood culture, if positive will need further investigation to rule out endocarditis per ID recommendation. Continue amlodipine for hypertension Extensive Counseling for IVDU Start Lovenox for DVT prophylax Problem Qualifiers (1) Abscess of skin: Qualified Code: L02.91 - Cutaneous abscess, unspecified site (2) HTN (hypertension): Qualified Code: I10 - Essential hypertension Alirio Sarkar MD Dec 06, 2016 10:25
--- NOTE | 2016-12-06 10:27 | HHI.DS ---
Discharge Summary Admission Date Dec 02, 2016 at 18:11 Discharge Date: Dec 06, 2016 Admitting Diagnosis Sepsis; multiple wounds; suspected endocarditis (1) Multiple wounds of skin ICD Code: R23.8 (2) Abscess of skin ICD Code: L02.91 (3) Suspected endocarditis ICD Code: Z03.89 (4) HTN (hypertension) ICD Code: I10 (5) IVDU (intravenous drug user) ICD Code: F19.90 Procedures none Brief History - From Admission This is a 56-year-old male patient who denies prior medical history. Patient reports that he is an IV drug user and used methamphetamines which he had injected Meth into his right antecubital space on . Patient reports that late or possibly Saturday he developed multiple skin lesions on bilateral upper extremities, bilateral lower extremities, buttocks and top of head. Patient reports that these lesions at first looked like, "blisters filled with pus." Patient then popped the lesions with a razor blade. The lesions are becoming more painful and not improving at home, therefore patient proceeded to the emergency department for further evaluation and treatment. Patient report he has been using intravenous drugs for 30+ years and has never had a problem like this before. Patient reports the needle he used on had been used previously used but he applied bleach prior to using it. Patient also reports he has been in drug rehabilitation with no success. Patient denies chest pain shortness of breath nausea vomiting diarrhea constipation fevers or chills. CBC/BMP: 12/04/16 0439 12/06/16 0342 Significant Findings Laboratory Tests Test 12/04/16 12/04/16 12/06/16 04:39 12:20 06:00 Red Blood Count 4.31 MIL/MM3 (4.50-5.90) Mean Platelet Volume 6.7 FL (7.0-11.0) Monocytes (%) (Auto) 12.0 % (0.0-8.0) Eosinophils (%) (Auto) 4.8 % (0.0-4.0) Aspartate Amino Transf 42 U/L (15-37) (AST/SGOT) Albumin 2.7 GM/DL (3.4-5.0) Vancomycin Level Trough 15.0 MCG/ML (5.0-10.0) PE at Discharge GENERAL: This is a well-nourished, well-developed patient, in no apparent distress. SKIN: Multiple dried pustules on the upper and lower extremities HEAD: Atraumatic. Normocephalic. EYES: Pupils equal round and reactive. Extraocular motions intact. No scleral icterus. ENT: Nose without bleeding, or drainage, Airway patent. NECK: Trachea midline. Supple CARDIOVASCULAR: Regular rate and rhythm without murmurs, gallops, or rubs. RESPIRATORY: Fair air entry bilaterally. No wheezes, rales, or rhonchi. GASTROINTESTINAL: Abdomen soft, non-tender, nondistended. Positive bowel sounds MUSCULOSKELETAL: Extremities without clubbing, cyanosis, or edema. Pedal pulses appreciated NEUROLOGICAL: Awake and alert. Moves all extremity. Normal speech.no focal neurological deficit Hospital Course 56-year-old male admitted for Multiple skin wounds infection with MRSA and group A streptococcus, Multiple skin abscesses and pustules, Suspected endocarditis follow blood culture, Hypertension, IVDU, DVT prophylax Patient started on Vanco and Zosyn, consulted ID, stopped Zosyn, continue vancomycin then switched to clindamycin for 14 days at discharge 2-D echo showed 55% EF, cannot rule out tricuspid vegetation, blood culture still no growth negative for 3 days, Continue amlodipine for hypertension Extensive Counseling for IVDU Lovenox for DVT prophylax Pt Condition on Discharge: Fair Discharge Disposition: Discharge Home Discharge Time: <= 30 minutes Discharge Instructions DIET: Follow Instructions for: Heart Healthy Diet Activities you can perform: Weight Bearing as Boyd New Medications: Clindamycin (Clindamycin) 300 Mg Cap 300 MG PO TID Infection Days 14 Ref 0 CAP Amlodipine (Norvasc) 5 Mg Tab 2.5 MG PO DAILY htn #30 TAB Hydrocodone-Acetaminophen (Hydrocodone-Acetaminophen) 5-325 mg Tab 1 TAB PO Q4H PRN PAIN GREATER THAN 5 #5 TAB Alirio Sarkar MD Dec 06, 2016 10:27
[2016-12-06] MEDS: ENOXAPARIN SODIUM 40 MG/0.4 ML SYRINGE SQ SCH (11:00)
== END 2016-12-06 13:26 | disposition home or self-care (01) | DRG 602 ==
LOC: NEPA 14:09 → NEDA 18:11 → N07A 20:08
PROVIDERS: ADMIT Hospitalist; ATTEND Hospitalist
DX: L02.414 Cutaneous abscess of left upper limb (principal); I33.0 Acute and subacute infective endocarditis; L02.415 Cutaneous abscess of right lower limb; L02.416 Cutaneous abscess of left lower limb; L03.90 Cellulitis, unspecified; I10 Essential (primary) hypertension; L02.413 Cutaneous abscess of right upper limb; B95.62 Methicillin resistant Staphylococcus aureus infection as the cause of diseases classified elsewhere; B95.0 Streptococcus, group A, as the cause of diseases classified elsewhere; F15.10 Other stimulant abuse, uncomplicated; F11.10 Opioid abuse, uncomplicated; L98.8 Other specified disorders of the skin and subcutaneous tissue; F17.210 Nicotine dependence, cigarettes, uncomplicated
CPT/HCPCS: 71010; 80048; 80053; 80202; 82565; 83605; 83735; 84100; 85025; 85652; 86403; 86703; 87040; 87070; 87147; 87186; 87205; 93005; 93306; 96365; 96367; 96375; J1885; J2543; J3370; J7030; J7040; J7050

== ENCOUNTER 2017-12-14 12:06 | Emergency (ER) | payer SELFPAY ==
[~2017-12-14] VITALS: Ht 170.2 cm; Wt 60.0 kg
[~2017-12-14 12:06] MED LIST: AMLO5 PO; CLIN300C5 PO; HYDR-3516 PO
[2017-12-14 12:14] VITALS: BP 158/90; PULSE 91; RESP 16; TEMP 98.7; O2SAT 99
--- NOTE | 2017-12-14 12:53 | PD ---
HPI Chief Complaint: OD/ Ingestion Time Seen by Provider: 12:31 Travel History International Travel<30 days: No Contact w/Intl Traveler<30days: No Traveled to known affect area: No History of Present Illness HPI The patient is a 57-year-old male who presents to the emergency department via EMS after a heroin overdose. The patient states she has not slept in approximately 3 days, used heroin earlier today when apparently overdose. The patient was administered Narcan 2 mg IM by EMS prior to arrival. Upon arrival patient is awake, alert, and oriented. The patient states it was heroin, it was not any oral narcotics or fentanyl. He has a history of IV drug abuse for the last 20 years. He denies any current chest pain, shortness of breath, nausea, vomiting, or abdominal pain. He requests no IV upon arrival to the emergency department. 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 SKIN: Focused skin assessment warm/dry. HEAD: Atraumatic. Normocephalic. EYES: Pupils equal and round. 2 mm bilateral and reactive. ENT: No nasal bleeding or discharge. Mucous membranes pink and moist. NECK: Trachea midline. No JVD. CARDIOVASCULAR: Regular rate and rhythm. No murmur appreciated. Heart rate in the 80s. RESPIRATORY: No accessory muscle use. Clear to auscultation. Breath sounds equal bilaterally. GASTROINTESTINAL: Abdomen soft, non-tender, nondistended. Nonfocal. MUSCULOSKELETAL: No obvious deformities. No clubbing. No cyanosis. No edema. NEUROLOGICAL: Awake and alert. No obvious cranial nerve deficits. Motor grossly within normal limits. Normal speech. Oriented 4. Follows commands without difficulty. PSYCHIATRIC: Appropriate mood and affect; insight and judgment normal. Data Data Last Documented VS Vital Signs Date Time Temp Pulse Resp B/P (MAP) Pulse Ox O2 Delivery O2 Flow Rate FiO2 12/14/17 17:25 95 Room Air 12/14/17 15:28 84 18 12/14/17 12:14 98.7 Orders Orders Ed Discharge Order (12/14/17 18:38) MDM Medical Decision Making Medical Screen Exam Complete: Yes Emergency Medical Condition: Yes Medical Record Reviewed: Yes Differential Diagnosis Differential diagnosis includes opiate overdose, heroin overdose, polysubstance abuse, aspiration, pulmonary edema. Narrative Course The patient received Narcan 2 mg IM prior to arrival. Upon arrival the patient was awake, alert, and oriented 4. He refused IV. The patient was placed on cardiac telemetry monitoring and continuous pulse oximetry monitoring. The patient was monitored in the emergency department for 4 hours. The patient was evaluated several times, there is no hypoxia. He was easily arousable. Once again at 6:30 PM the patient was evaluated, he was awake, alert, orientated without hypoxia. Patient stable for outpatient follow-up. Diagnosis Primary Impression: Accidental heroin overdose Qualified Codes: T40.1X1A - Poisoning by heroin, accidental (unintentional), initial encounter Patient Instructions: General Instructions Additional Instructions: Stop using drugs. Follow[facility]up at [facility]. Return if symptoms worsen or progress. Med/Other Pt SpecificInfo: No Change to Meds Disposition: 01 DISCHARGE HOME Condition: Stable Evangelista Wan MD Dec 14, 2017 12:53
[2017-12-14 14:27] VITALS: BP 138/78; PULSE 80; RESP 18; O2SAT 96
[2017-12-14 15:28] VITALS: BP 144/100; PULSE 84; RESP 18; O2SAT 94
[2017-12-14 16:53] VITALS: O2SAT 95
[2017-12-14 17:25] VITALS: O2SAT 95
== END 2017-12-14 18:57 | disposition home or self-care (01) ==
LOC: NEPE 12:06
DX: T40.1X1A Poisoning by heroin, accidental (unintentional), initial encounter (principal); F15.10 Other stimulant abuse, uncomplicated; F14.10 Cocaine abuse, uncomplicated; F11.10 Opioid abuse, uncomplicated; Z72.0 Tobacco use
CPT/HCPCS: 99281

== ENCOUNTER 2017-12-29 13:46 | Emergency (ER) | payer SELFPAY ==
[2017-12-29] MEDS ORDERED: SODIUM CHLOR 0.9% 1000 ML INJ 1,000 ML IV SCH (14:33)
[2017-12-29] MEDS ORDERED: ONDANSETRON HCL 4 MG/2 ML VIAL IVP ONE (14:45)
[2017-12-29] MEDS ORDERED: SODIUM CHLORIDE 0.9% FLUSH 10 ML FLUSH IV FLUSH PRN (14:45)
[2017-12-29] MEDS ORDERED: KETOROLAC TROMETHAMINE 30 MG/ML (IVP) VIAL IVP ONE (14:45)
--- NOTE | 2017-12-29 14:45 | PD ---
HPI Chief Complaint: Abdominal Pain Time Seen by Provider: 14:32 Travel History International Travel<30 days: No Contact w/Intl Traveler<30days: No Traveled to known affect area: No History of Present Illness HPI Patient is a 57-year-old male presents emergency department with fairly sudden onset left flank pain radiating down to his groin. Patient is acting very painful on arrival in all 4 extremities and is very difficult to exam or history from. Review of his records shows that he has been here for suspected heroin overdose in the past and has received Narcan. He also has stated that his urine has been very dark during a few episodes yesterday, he denies any chest pain shortness of breath nausea or vomiting or injury. Patient has no history of kidney stones has not tried anything to alleviate his pain prior to arrival [facility] Past Medical History Arthritis: Yes (lower lumbar) Cancer: No Cardiovascular Problems: No Endocrine: No Genitourinary: No Musculoskeletal: Yes Neurologic: No Psychiatric: No Reproductive: No Respiratory: No Past Surgical History Surgical History: No Previous Surgery Social History Alcohol Use: Yes (not a lot) Tobacco Use: Yes (1/2 PACK A DAY ) Substance Use: Yes (HERION, METH, CRACK, COCAINE ) Allergies-Medications (Allergen,Severity, Reaction): Coded Allergies: *MDRO Multi-Drug Resistant Organism (Verified Adverse Reaction, Unknown, ) MRSA (arm wound) - 12/02/16 Reported Meds & Prescriptions Reported Meds & Active Scripts Active Tamsulosin (Tamsulosin HCl) 0.4 Mg Cap 0.4 Mg PO HS Review of Systems Except as stated in HPI: all other systems reviewed are Neg Physical Exam Narrative GENERAL: Well-developed, well-nourished, appears quite uncomfortable SKIN: Focused skin assessment warm/dry. HEAD: Atraumatic. Normocephalic. EYES: Pupils equal and round. No scleral icterus. No injection or drainage. ENT: No nasal bleeding or discharge. Mucous membranes pink and moist. NECK: Trachea midline. No JVD. CARDIOVASCULAR: Regular rate and rhythm. No murmur appreciated. RESPIRATORY: No accessory muscle use. Clear to auscultation. Breath sounds equal bilaterally. GASTROINTESTINAL: Abdomen soft, non-tender, nondistended. Hepatic and splenic margins not palpable. Once patient was medicated was examined and his abdomen is fairly benign, no rebound no percussive tenderness, no CVA tenderness, GENITOURINARY: Grossly normal male genitalia, cremasteric reflex intact, no testicular tenderness per MUSCULOSKELETAL: No obvious deformities. No clubbing. No cyanosis. No edema. NEUROLOGICAL: Awake and alert. No obvious cranial nerve deficits. Motor grossly within normal limits. Normal speech. PSYCHIATRIC: Appropriate mood and affect; insight and judgment normal. Data Data Orders Orders Complete Blood Count With Diff (12/29/17 14:33) Comprehensive Metabolic Panel (12/29/17 14:33) Lipase (12/29/17 14:33) Lactic Acid (12/29/17 14:33) Prothrombin Time / Inr (Pt) (12/29/17 14:33) Act Partial Throm Time (Ptt) (12/29/17 14:33) Urinalysis - C+S If Indicated (12/29/17 14:33) Iv Access Insert/Monitor (12/29/17 14:33) Ecg Monitoring (12/29/17 14:33) Oximetry (12/29/17 14:33) Ondansetron Inj (Zofran Inj) (12/29/17 14:45) Sodium Chlor 0.9% 1000 Ml Inj (Ns 1000 M (12/29/17 14:33) Sodium Chloride 0.9% Flush (Ns Flush) (12/29/17 14:45) Electrocardiogram (12/29/17 14:33) Ketorolac Inj (Toradol Inj) (12/29/17 14:45) Ed Discharge Order (12/29/17 15:42) Labs Laboratory Tests Test 12/29/17 14:45 White Blood Count 12.0 TH/MM3 Red Blood Count 4.56 MIL/MM3 Hemoglobin 14.0 GM/DL Hematocrit 40.1 % Mean Corpuscular Volume 88.0 FL Mean Corpuscular Hemoglobin 30.6 PG Mean Corpuscular Hemoglobin Concent 34.8 % Red Cell Distribution Width 13.6 % Platelet Count 292 TH/MM3 Mean Platelet Volume 6.5 FL Neutrophils (%) (Auto) 81.1 % Lymphocytes (%) (Auto) 11.0 % Monocytes (%) (Auto) 5.9 % Eosinophils (%) (Auto) 1.7 % Basophils (%) (Auto) 0.3 % Neutrophils # (Auto) 9.8 TH/MM3 Lymphocytes # (Auto) 1.3 TH/MM3 Monocytes # (Auto) 0.7 TH/MM3 Eosinophils # (Auto) 0.2 TH/MM3 Basophils # (Auto) 0.0 TH/MM3 CBC Comment DIFF FINAL Differential Comment Prothrombin Time 10.2 SEC Prothromb Time International Ratio 1.0 RATIO Activated Partial Thromboplast Time 25.0 SEC Urine Color YELLOW Urine Turbidity HAZY Urine pH 7.0 Urine Specific [place] 1.024 Urine Protein TRACE mg/dL Urine Glucose (UA) NEG mg/dL Urine Ketones NEG mg/dL Urine Occult Blood MOD Urine Nitrite NEG Urine Bilirubin NEG Urine Urobilinogen LESS THAN 2.0 MG/DL Urine Leukocyte Esterase NEG Urine RBC /hpf Urine WBC 2 /hpf Urine Squamous Epithelial Cells <1 /hpf Urine Mucus MANY /lpf Microscopic Urinalysis Comment CULT NOT INDICATED Blood Urea Nitrogen 16 MG/DL Creatinine 0.95 MG/DL Random Glucose 113 MG/DL Total Protein 7.7 GM/DL Albumin 3.3 GM/DL Calcium Level 9.1 MG/DL Alkaline Phosphatase 100 U/L Aspartate Amino Transf (AST/SGOT) 54 U/L Alanine Aminotransferase (ALT/SGPT) 114 U/L Total Bilirubin 0.3 MG/DL Sodium Level 140 MEQ/L Potassium Level 4.1 MEQ/L Chloride Level 107 MEQ/L Carbon Dioxide Level 28.1 MEQ/L Anion Gap 5 MEQ/L Estimat Glomerular Filtration Rate 82 ML/MIN Lactic Acid Level 1.6 mmol/L Lipase 108 U/L MDM Medical Decision Making Medical Screen Exam Complete: Yes Emergency Medical Condition: Yes Differential Diagnosis Kidney stone, testicular torsion highly unlikely, acute abdomen highly unlikely to Narrative Course Patient room to the emergency department, though he looked quite uncomfortable after medication with Toradol he is examined and has benign abdomen, he does have too numerous to count red blood cells in his urine, basic labs are otherwise reassuring. His symptoms are highly suggestive of kidney stone is causative etiology. I did recommend to him that he have a CAT scan to confirm this diagnosis but he states he is feeling so much better he would rather go home and follow-up with his primary care physician. I told him that I think this is reasonable but without doing CAT scan I cannot confirm a diagnosis reviewed other more serious diagnoses he verbalized understanding and agreement and still would like to be discharged. He was discharged on his own care discussed returning to criteria, tamsulosin therapy symptomatic management Diagnosis Primary Impression: Renal colic on left side Referrals: Abimael Pettit MD Med/Other Pt SpecificInfo: Prescription(s) given Scripts Tamsulosin (Tamsulosin) 0.4 Mg Cap 0.4 MG PO HS for Manage Prostate Problems, #30 CAP 0 Refills Prov: Darci Bradshaw MD 12/29/17 Disposition: 01 DISCHARGE HOME Condition: Stable Darci Bradshaw MD Dec 29, 2017 14:45
[2017-12-29 15:03] LABS: AUTOMATED NEUTROPHIL # 9.8 TH/MM3 (1.8-7.7); BASOPHIL % 0.3 % (0.0-2.0); EOSINOPHIL # 0.2 TH/MM3 (0-0.4); EOSINOPHIL % 1.7 % (0.0-4.0); HEMATOCRIT 40.1 % (39.0-51.0); LYMPHOCYTE # 1.3 TH/MM3 (1.0-4.8); MEAN CORPUSCULAR HEMOGLOBIN 30.6 PG (27.0-34.0); MEAN CORPUSCULAR HGB CONC 34.8 % (32.0-36.0); MEAN PLATELET VOLUME 6.5 FL (7.0-11.0); MONO % 5.9 % (0.0-8.0); MONOCYTE # 0.7 TH/MM3 (0-0.9); NEUT % 81.1 % (16.0-70.0); PLATELET COUNT 292 TH/MM3 (150-450); RED BLOOD COUNT 4.56 MIL/MM3 (4.50-5.90); RED CELL DISTRIBUTION WIDTH 13.6 % (11.6-17.2)
[2017-12-29 15:16] LABS: BILIRUBIN, URINE NEG (NEG); BLOOD, URINE MOD (NEG); GLUCOSE,URINE NEG (NEG); KETONE, URINE NEG (NEG); MUCUS URINE MANY /lpf (OCC); NITRITE,URINE NEG (NEG); SQUAMOUS EPITHELIAL CELL URINE <1 /hpf (0-5); URINE COLOR YELLOW (YELLW/STRAW); URINE LEUKOCYTE ESTERASE NEG (NEG)
[2017-12-29 15:21] LABS: ALBUMIN 3.3 GM/DL (3.4-5.0); ALT (GPT) 114 U/L (12-78); AST (GOT) 54 U/L (15-37); BICARBONATE 28.1 MEQ/L (21.0-32.0); BLOOD UREA NITROGEN 16 MG/DL (7-18); CALCIUM 9.1 MG/DL (8.5-10.1); CHLORIDE 107 MEQ/L (98-107); CREATININE 0.95 MG/DL (0.60-1.30); GLOMERULAR FILTRATION RATE 82 ML/MIN (>89); GLUCOSE,RANDOM 113 MG/DL (74-106); SODIUM (NA) 140 MEQ/L (136-145)
[2017-12-29 15:23] LABS: ALKALINE PHOSPHATASE 100 U/L (45-117); TOTAL BILIRUBIN ADULT 0.3 MG/DL (0.2-1.0); TOTAL PROTEIN 7.7 GM/DL (6.4-8.2)
[2017-12-29 15:31] LABS: PROTHROMBIN TIME - PATIENT 10.2 SEC (9.8-11.6)
[2017-12-29] MEDS ORDERED: TAMS0.4C4 PO (15:41)
--- NOTE | 2017-12-30 15:24 | EKG ---
Date Performed: 12/29/2017 Time Performed: 15:18:57 PTAGE: 57 years EKG: Sinus rhythm WITH MARKED SINUS ARRHYTHMIA Compared to previous tracing, arrhythmia is new BORDERLINE ECG PREVIOUS TRACING : 12/02/2016 15.17 DOCTOR: Alex Momin Interpretating Date/Time 12/30/2017 15:23:57
== END 2017-12-29 16:05 | disposition home or self-care (01) ==
LOC: NEPC 13:46
DX: N23 Unspecified renal colic (principal); R94.31 Abnormal electrocardiogram [ECG] [EKG]; M46.96 Unspecified inflammatory spondylopathy, lumbar region; F17.200 Nicotine dependence, unspecified, uncomplicated; F11.90 Opioid use, unspecified, uncomplicated; F15.90 Other stimulant use, unspecified, uncomplicated; F14.90 Cocaine use, unspecified, uncomplicated
CPT/HCPCS: 80053; 81001; 83605; 83690; 85025; 85610; 85730; 93005; 96361; 96374; 96375; 99284; J1885; J2405; J7030